=== PATIENT | male | born 1985 | race Native Hawaiian/Other Pacific Islander ===

== ENCOUNTER 2016-05-10 21:46 | Emergency (ER) | payer BC ==
--- NOTE | 2016-05-11 00:29 | ER Document Report ---
ED Head/Face/Scalp Injury - General Chief Complaint: Eye Injury Stated Complaint: RIGHT EYE LACERATION Time seen by provider: 00:28 Mode of Arrival: Ambulatory Information source: Patient TRAVEL OUTSIDE OF THE [place] IN LAST 30 DAYS: No - HPI Patient complains to provider of: Injury, Laceration Injury to: Cheek Location of problem: Cheek Occurred: Just prior to arrival Where: Outdoors, Sports Timing: Still present Context: Direct blow Loss consciousness: No loss of consciousness Remembers: Injury, Coming to hospital Notes: Patient is a 30-year-old male who presents to the emergency room complaining of laceration below his right eye that occurred just prior to arrival, states he was plan basketball when someone accidentally elbowed him to the area, he denies any other injury, no headache, no loss of consciousness, no nausea, vomiting or diarrhea, no dizziness, no vision changes, otherwise healthy male with vaccinations including tetanus shot up-to-date - Related Data Allergies/Adverse Reactions: No Known Allergies Allergy (Verified 05/10/16 22:04) Past Medical History - General Information source: Patient - Social History Smoking Status: Never Smoker Chew tobacco use (# tins/day): No Frequency of alcohol use: Occasional Drug Abuse: None Family History: Reviewed & Not Pertinent Patient has suicidal ideation: No Patient has homicidal ideation: No Renal/ Medical History: Denies: Hx Peritoneal Dialysis Review of Systems - Review of Systems Constitutional: No symptoms reported EENT: No symptoms reported Cardiovascular: No symptoms reported Respiratory: No symptoms reported Gastrointestinal: No symptoms reported Genitourinary: No symptoms reported Male Genitourinary: No symptoms reported Musculoskeletal: No symptoms reported Skin: See HPI Hematologic/Lymphatic: No symptoms reported Neurological/Psychological: No symptoms reported Physical Exam - Vital signs Vitals: Temp Pulse Resp BP Pulse Ox 98.2 F 110 H 18 117/59 L 95 05/10/16 21:58 05/10/16 21:58 05/10/16 21:58 05/10/16 21:58 05/10/16 21:58 Interpretation: Normal - Notes Notes: - General General appearance: Appears well, Alert In distress: None - HEENT Head: Normocephalic, 1.5 cm laceration just below the right eye, over the maxilla, mild ecchymosis and swelling Eyes: Normal Conjunctiva: Normal Extraocular movements intact: Yes Eyelashes: Normal Pupils: PERRL - Respiratory Respiratory status: No respiratory distress - Cardiovascular Rhythm: Regular - Abdominal Inspection: Normal - Back Back: Normal - Extremities General upper extremity: Normal inspection General lower extremity: Normal inspection - Neurological Neuro grossly intact: Yes Orientation: AAOx4 Cathy Coma Scale Eye Opening: Spontaneous Cathy Coma Scale Verbal: Oriented Cathy Coma Scale Motor: Obeys Commands Wilmore Coma Scale Total: 15 - Psychological Associated symptoms: Normal affect, Normal mood - Skin Skin Temperature: Warm Skin Moisture: Dry Skin Color: Normal Course - Re-evaluation Re-evalutation: 05/11/16 01:09 Wound was repaired using Dermabond, patient was given wound care instructions and distractions for follow-up, advised to return if symptoms worsen, patient acknowledges understanding and agreement with this plan - Vital Signs Vital signs: Temp Pulse Resp BP Pulse Ox 98.2 F 110 H 18 117/59 L 95 05/10/16 22:01 05/10/16 22:01 05/10/16 22:01 05/10/16 22:01 05/10/16 22:01 Procedures - Laceration/Wound Repair Right Face Time completed: 01:09 Wound length (cm): 1.5 Wound's Depth, Shape: Linear Laceration pre-procedure: Sterile PPE donned Wound explored: Clean Wound Repaired With: Dermabond Layer Closure?: No Post-procedure NV exam normal: Yes Complications: No Adult Head Front/Back picture: 1 - 1.5 cm laceration Discharge - Discharge Clinical Impression: Facial laceration Qualifiers: Encounter type: initial encounter Qualified Code(s): S01.81XA - Laceration without foreign body of other part of head, initial encounter Condition: Stable Disposition: HOME, SELF-CARE Instructions: Skin Adhesive Closure ([facility]) Additional Instructions: Allow skin adhesive to dissolve on its own over the next 7-10 days and wound to be healed. Do not apply any creams or lotions as this will prematurely dissolve the adhesive. Follow up with your primary care provider for wound check in 2-3 days. Return to the emergency room immediately if symptoms worsen or any additional concerns.
[2016-05-11 01:44] VITALS: BP 122/64
== END 2016-05-11 00:45 | disposition home or self-care (01) ==
LOC: ER 21:46
DX: S01.81XA Laceration without foreign body of other part of head, initial encounter (principal); W50.0XXA Accidental hit or strike by another person, initial encounter; Y93.67 Activity, basketball; Y92.39 Other specified sports and athletic area as the place of occurrence of the external cause
CPT/HCPCS: 99283